=== PATIENT | male | born 1975 | race Caucasian/White ===

== ENCOUNTER 2016-05-04 09:06 | Emergency (ER) | payer BC ==
[~2016-05-04] VITALS: Ht 182.9 cm; Wt 98.2 kg
[~2016-05-04 09:06] MED LIST: ALKA-SELTZER P1 EAC2 PO; NOHOMEMEDS; ZOLOFT50 MG PO
[2016-05-04 09:10] VITALS: BP 128/78
[2016-05-04] MEDS ORDERED: PEN-VEE K,VEET500 MG PO (09:35)
[2016-05-04] MEDS ORDERED: MONTELUKAST SOD10 MG PO (09:54)
== END 2016-05-04 09:59 | disposition home or self-care (01) ==
LOC: EME 09:06
DX: J02.9 Acute pharyngitis, unspecified (principal)
CPT/HCPCS: 99281; 99284